=== PATIENT | male | born 2000 | race African-American/Black ===

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

== ENCOUNTER 2019-01-02 17:24 | Emergency (ER) | payer BC, OTHER ==
[~2019-01-02] VITALS: Ht 195.6 cm; Wt 90.7 kg
[~2019-01-02 17:24] MED LIST: CEPACOL SORE T1 EAC8 PO; LEVAQUIN 500 M500 M2 PO; PENICILLIN V P500 MG PO; PREDNISONE 20 M20 M1 PO
[2019-01-02] MEDS ORDERED: MOBIC7.5 MG PO (19:27)
[2019-01-02 19:51] VITALS: BP 126/80
--- NOTE | 2019-01-03 08:13 | EKG ---
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 01/03/19 0813 1825 1825 John Glez MD, FACC /EPI
== END 2019-01-02 19:53 | disposition home or self-care (01) ==
LOC: ER 17:24
DX: R07.89 Other chest pain (principal)

== ENCOUNTER 2019-04-28 19:47 | Emergency (ER) | payer OTHER ==
[~2019-04-28] VITALS: Ht 195.6 cm; Wt 98.9 kg
[~2019-04-28 19:47] MED LIST changes: +MOBIC7.5 MG PO
[2019-04-28 19:49] VITALS: BP 130/78
== END 2019-04-28 21:32 | disposition home or self-care (01) ==
LOC: ER 19:47
DX: J30.9 Allergic rhinitis, unspecified (principal); Z77.120 Contact with and (suspected) exposure to mold (toxic)

== ENCOUNTER 2019-11-13 12:15 | Emergency (ER) | payer OTHER ==
[~2019-11-13] VITALS: Ht 195.6 cm; Wt 98.9 kg
[2019-11-13] MEDS ORDERED: AMOXICILLIN875 MG PO (14:58)
[2019-11-13] MEDS ORDERED: TRAMADOL 50 MG50 MG PO (14:58)
[2019-11-13 15:08] VITALS: BP 142/81
== END 2019-11-13 15:08 | disposition home or self-care (01) ==
LOC: ER 12:15
DX: J32.9 Chronic sinusitis, unspecified (principal); R51 Headache

== ENCOUNTER 2019-12-04 20:36 | Inpatient (IN) | payer OTHER ==
[~2019-12-04] VITALS: Ht 195.6 cm; Wt 106.1 kg
[~2019-12-04 20:36] MED LIST changes: +AMOXICILLIN875 MG PO; +TRAMADOL 50 MG50 MG PO
[2019-12-04 20:37] VITALS: BP 140/71
[2019-12-04] MEDS ORDERED: NOHOMEMEDICATIONS (21:18)
[2019-12-04 21:19] LABS: ABSOLUTE NEUTROPHILS 2.7 thou/uL (1.4-8.2); BASOPHILS 1.2 % (0.0-2.0); EOSINOPHILS 2.3 % (0.0-3.0); HEMATOCRIT 47.2 % (42.0-52.0); HEMOGLOBIN 15.9 gm/dL (14.0-18.0); LYMPHOCYTES 32.8 % (24.0-44.0); MCH 29.4 pg (26.0-34.0); MCHC 33.7 g/dL (28.0-37.0); MCV 87.1 fL (80.0-100.0); PLATELET COUNT 179 thou/uL (150-400); POLYS 59.7 % (36.0-66.0); RBC 5.42 mil/uL (4.50-6.00); WBC 4.6 thou/uL (4.0-11.0)
[2019-12-04 21:22] LABS: CREATININE 1.3 mg/dL (0.7-1.3); POTASSIUM 3.6 mmol/L (3.5-5.1)
[2019-12-04 21:28] LABS: ALBUMIN 4.8 g/dL (3.4-5.0); DIRECT BILIRUBIN 0.1 mg/dL (<0.1-0.2); TOTAL BILIRUBIN 0.5 mg/dL (<0.1-1.0); TOTAL PROTEIN 9.3 g/dL (6.4-8.2)
[2019-12-04 21:37] LABS: URINE BILIRUBIN NEGATIVE (Negative); URINE BLOOD NEGATIVE (Negative); URINE CLARITY CLEAR; URINE COLOR YELLOW; URINE GLUCOSE-RANDOM* NEGATIVE (Negative); URINE KETONES NEGATIVE (Negative); URINE LEUKOCYTES-REFLEX NEGATIVE (Negative); URINE NITRITE-REFLEX NEGATIVE (Negative); URINE PROTEIN (DIPSTICK) NEGATIVE (Negative); URINE SPECIFIC GRAVITY >= 1.030 (1.005-1.035)
[2019-12-05 00:08] VITALS: BP 116/62
[2019-12-05 00:25] VITALS: BP 126/66
[2019-12-05] MEDS ORDERED: FLEXERIL PO (00:53)
[2019-12-05 06:15] VITALS: BP 116/62
[2019-12-05 07:00] VITALS: BP 11/54
[2019-12-05 14:59] VITALS: BP 114/60
[2019-12-05 19:16] VITALS: BP 115/62
[2019-12-06 04:42] LABS: ABSOLUTE NEUTROPHILS 1.7 thou/uL (1.4-8.2); BASOPHILS 0.5 % (0.0-2.0); EOSINOPHILS 4.3 % (0.0-3.0); HEMATOCRIT 36.8 % (42.0-52.0); LYMPHOCYTES 38.6 % (24.0-44.0); MCH 29.4 pg (26.0-34.0); MCHC 33.4 g/dL (28.0-37.0); MCV 88.1 fL (80.0-100.0); MONOCYTES 9.7 % (1.0-8.0); PLATELET COUNT 125 thou/uL (150-400); POLYS 46.9 % (36.0-66.0); RBC 4.18 mil/uL (4.50-6.00); RDW 12.9 % (10.5-14.5); WBC 3.7 thou/uL (4.0-11.0)
[2019-12-06 04:44] LABS: HEMOGLOBIN 12.3 gm/dL (14.0-18.0)
[2019-12-06 09:42] VITALS: BP 150/63
[2019-12-06 14:37] VITALS: BP 132/70
[2019-12-06 19:56] VITALS: BP 123/62
[2019-12-07 07:01] VITALS: BP 138/67
[2019-12-07 14:48] VITALS: BP 138/67
== END 2019-12-07 15:15 | disposition home or self-care (01) | DRG 392 ==
LOC: ER 20:36 → EROBS 12-05 00:10 → 4W 12-05 00:16
PROVIDERS: Nurse Practitioner; Surgery; ADMIT Surgery
DX: R10.9 Unspecified abdominal pain (principal); Z79.899 Other long term (current) drug therapy; Z80.3 Family history of malignant neoplasm of breast
CPT/HCPCS: 10040

== ENCOUNTER 2019-12-11 08:49 | Inpatient (IN) | payer OTHER ==
[~2019-12-11] VITALS: Ht 195.6 cm; Wt 93.0 kg
[~2019-12-11 08:49] MED LIST changes: +FLEXERIL PO; +NOHOMEMEDICATIONS
[2019-12-11 08:50] VITALS: BP 139/83
[2019-12-11 09:40] LABS: ABSOLUTE NEUTROPHILS 1.7 thou/uL (1.4-8.2); BASOPHILS 0.8 % (0.0-2.0); EOSINOPHILS 7.7 % (0.0-3.0); HEMATOCRIT 49.6 % (42.0-52.0); HEMOGLOBIN 16.8 gm/dL (14.0-18.0); LYMPHOCYTES 38.2 % (24.0-44.0); MCH 29.6 pg (26.0-34.0); MCHC 33.9 g/dL (28.0-37.0); MCV 87.2 fL (80.0-100.0); MONOCYTES 7.2 % (1.0-8.0); PLATELET COUNT 176 thou/uL (150-400); POLYS 46.1 % (36.0-66.0); RBC 5.69 mil/uL (4.50-6.00); RDW 13.2 % (10.5-14.5); WBC 3.6 thou/uL (4.0-11.0)
[2019-12-11 09:44] LABS: CALCIUM 10.2 mg/dL (8.5-10.1); CREATININE 1.3 mg/dL (0.7-1.3); POTASSIUM 4.3 mmol/L (3.5-5.1)
[2019-12-11 09:50] LABS: ALBUMIN 4.4 g/dL (3.4-5.0); TOTAL BILIRUBIN 0.7 mg/dL (<0.1-1.0)
[2019-12-11 12:19] VITALS: BP 121/74
[2019-12-11 13:00] VITALS: BP 127/78
--- NOTE | 2019-12-11 14:42 | NUR ---
Patient arrived on unit at 1240. Vital signs are stable. Patient admitted with Appendicitis. He is NPO, awaiting surgery. Patient started on Lactated Ringer's at 100mLs/hr. Patient tolerated IV antibiotics well. He signed consent for Appendectomy after verbalizing an understanding. Signifigant other and family members are at bedside. Patient is up ad jaycee to the restroom. He denied pain upon admittance as he had pain medication in the ED. Will continue to monitor.
[2019-12-11 20:48] VITALS: BP 155/69
--- NOTE | 2019-12-12 05:30 | NUR ---
PROGRESS PT UP AD MATT VSS, WEANED TO ROOM AIR SATS AT 99%. TOLERATING REG DIET, PO INTAKE ADEQUATE. IV INFILTRATED REMOVED ORDER OBTAINED BY DR. ISHA GRULLON TO LEAVE OUT. PAIN CONTROLLED WITH IBUPROFEN, OXYCODONE AND TYLENOL. VOIDING QS. PLANS TO DC HOME TODAY.
[2019-12-12] MEDS ORDERED: IBUPROFEN 200200 M1 PO (13:28)
[2019-12-12] MEDS ORDERED: OXYCODONE HCL 55 MG PO (13:29)
[2019-12-12] MEDS ORDERED: COLACE 100 MG100 MG PO (13:29)
[2019-12-12] MEDS ORDERED: ACETAMINOPHEN325 M1 PO (13:29)
[2019-12-12] MEDS ORDERED: ZOFRAN ODT4 MG DISSOLVE (13:30)
[2019-12-12] MEDS ORDERED: MIRALAX17 GM PO (13:30)
[2019-12-12 14:13] VITALS: BP 155/69
--- NOTE | 2019-12-12 19:36 | NUR ---
VERIFYING DISCHARGE MEDS FOR [facility] POST DISCHARGE.
--- NOTE | 2019-12-15 16:07 | PATH ---
[facility] [address] [place] [address] PATHOLOGY RPT PROCEDURE Name: PINA VALERA Room #: 456-P DIS IN M.R.#: [id number] Admission: 12/11/19 Date of : [birth year] Discharge: 12/12/19 Report #: [id number] Path Case #: [id number] [facility] Accession Number: [id number] . 01 Material submitted: . appendix - APPENDIX . 01 Clinical history: . acute appendicitis . 02 Diagnosis: Appendix, appendectomy: - Markedly congested appendiceal wall. - Moderate acute and chronic serositis. - Lymphoid tissue showing reactive hyperplastic changes within the appendiceal wall. . (IUV:mml; 12/15/2019) QL 12/15/2019 1345 Local . 02 Electronically signed: . Meenakshi Harp MD, Pathologist NPI- [id number] . 01 Gross description: . The specimen is received in formalin, labeled "Pina Valera, appendix" and consists of an appendix measuring 10.8 in length and up to 0.8 in diameter with mesoappendix measuring 1.5 thick. The serosa is pink-neri with hemorrhagic adhesions. The margin is closed with a line of sara and inked black. Sectioning reveals a pinpoint to dilated lumen containing brown fecal material and no fecaliths. Sales Superintendent sections are submitted in A1. (SDY; 12/12/2019) SYU/SYU 12/12/2019 1605 Local . 02 Pathologist provided ICD-10: K35.80, K65.8 . 02 CPT . 846796 Specimen Comment: A courtesy copy of this report has been sent to [phone] Specimen Comment: Report sent to Performed at: [address] [id number] MD Aaron Trivedi MD Phone: [phone] Performed at: [address] [address] [place] [address] PATHOLOGY RPT PROCEDURE Name: PINA VALERA Room #: 456-P DIS IN M.R.#: [id number] Admission: 12/11/19 Date of : [birth year] Discharge: 12/12/19 Report #: [id number] Path Case #: [id number] [address] [id number] MD Meenakshi Harp MD Phone: [phone]
== END 2019-12-12 16:17 | disposition home or self-care (01) | DRG 343 ==
LOC: ER 08:49 → EROBS 11:05 → 4W 11:05 → ENTRNSPT 12-12 16:02 → 4W 12-12 16:17
PROVIDERS: Emergency Medicine; ADMIT Surgery
PROC: 0DTJ4ZZ Resection of Appendix, Percutaneous Endoscopic Approach (ICD-10-PCS; principal; 2019-12-11)
DX: K35.80 Unspecified acute appendicitis (principal); Z79.899 Other long term (current) drug therapy; Z28.21 Immunization not carried out because of patient refusal
CPT/HCPCS: 10047; 50010; 50101; 50249; 50411; 50555; 50558; 50739; 50740; 52265; 52266; 53307; 53310; 53312; 54022; 54118; 56525; 56526; 62110; 62900; 70005

== ENCOUNTER 2020-06-05 03:26 | Emergency (ER) | payer OTHER ==
[~2020-06-05] VITALS: Ht 195.6 cm; Wt 95.3 kg
[~2020-06-05 03:26] MED LIST changes: +ACETAMINOPHEN325 M1 PO; +COLACE 100 MG100 MG PO; +IBUPROFEN 200200 M1 PO; +MIRALAX17 GM PO; +OXYCODONE HCL 55 MG PO; +ZOFRAN ODT4 MG DISSOLVE
[2020-06-05] MEDS ORDERED: NAPROSYN500 M1 (03:37)
[2020-06-05] MEDS ORDERED: FLEXERIL PO (03:37)
[2020-06-05 04:35] LABS: ABSOLUTE NEUTROPHILS 1.9 thou/uL (1.4-8.2); BASOPHILS 0.9 % (0.0-2.0); EOSINOPHILS 6.9 % (0.0-3.0); HEMATOCRIT 42.6 % (42.0-52.0); HEMOGLOBIN 14.6 gm/dL (14.0-18.0); MCH 30.3 pg (26.0-34.0); MCHC 34.2 g/dL (28.0-37.0); MCV 88.6 fL (80.0-100.0); MONOCYTES 8.1 % (1.0-8.0); PLATELET COUNT 151 thou/uL (150-400); POLYS 49.1 % (36.0-66.0); RBC 4.81 mil/uL (4.50-6.00); RDW 12.9 % (10.5-14.5); WBC 3.9 thou/uL (4.0-11.0)
[2020-06-05 04:43] LABS: ANION GAP 8 mmol/L (7-16); BUN 13 mg/dL (7-18); CALCIUM 8.9 mg/dL (8.5-10.1); CHLORIDE 104 mmol/L (98-107); CO2 27 mmol/L (21-32); CREATININE 1.3 mg/dL (0.7-1.3); GLUCOSE 121 mg/dL (74-106); POTASSIUM 3.9 mmol/L (3.5-5.1); SODIUM 139 mmol/L (136-145)
[2020-06-05 04:53] LABS: ALBUMIN 3.9 g/dL (3.4-5.0); SGOT 19 U/L (15-37); SGPT 31 U/L (30-65); TOTAL BILIRUBIN 0.3 mg/dL (0.2-1.0); TOTAL PROTEIN 7.3 g/dL (6.4-8.2); TROPONIN-I <0.06 ng/mL (<0.06)
[2020-06-05 05:00] LABS: AMP/METHAMP Negative (Negative); BARBITURATES Negative (Negative); BENZODIAZEPINES Negative (Negative); COCAINE Negative (Negative); METHADONE Negative (Negative); OPIATES Negative (Negative); PCP Negative (Negative)
[2020-06-05] MEDS ORDERED: TYLENOL WITH CO1 TA1 PO (06:00)
[2020-06-05] MEDS ORDERED: NAPROSYN500 MG PO (06:00)
[2020-06-05] MEDS ORDERED: NORFLEX100 MG PO (06:00)
[2020-06-05 06:22] VITALS: BP 135/65
[2020-06-05 07:19] LABS: LARGE PLATELETS OCCASIONAL
--- NOTE | 2020-06-07 08:05 | EKG ---
[facility] [place] [address] ELECTROCARDIOGRAM REPORT Name: PINA VALERA Room #: DEP 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
== END 2020-06-05 06:28 | disposition home or self-care (01) ==
LOC: ER 03:26
PROVIDERS: Emergency Medicine
DX: M54.6 Pain in thoracic spine (principal); Z90.49 Acquired absence of other specified parts of digestive tract; Z79.899 Other long term (current) drug therapy

== ENCOUNTER 2021-04-24 21:36 | Emergency (ER) | payer OTHER, BC ==
[~2021-04-24] VITALS: Ht 195.6 cm; Wt 106.1 kg
[~2021-04-24 21:36] MED LIST changes: +NAPROSYN500 M1; +NAPROSYN500 MG PO; +NORFLEX100 MG PO; +TYLENOL WITH CO1 TA1 PO
[2021-04-24 23:48] VITALS: BP 140/77
== END 2021-04-24 23:49 | disposition home or self-care (01) ==
LOC: ER 21:36
DX: S80.12XA Contusion of left lower leg, initial encounter (principal); V43.52XA Car driver injured in collision with other type car in traffic accident, initial encounter; Y93.I9 Activity, other involving external motion; Y92.89 Other specified places as the place of occurrence of the external cause; Y99.8 Other external cause status

== ENCOUNTER 2021-10-06 13:22 | Emergency (ER) | payer BC ==
[~2021-10-06] VITALS: Ht 195.6 cm; Wt 106.6 kg
[2021-10-06 13:28] VITALS: BP 144/66
== END 2021-10-06 14:25 | disposition home or self-care (01) ==
LOC: ER 13:22
DX: R68.84 Jaw pain (principal); Z90.89 Acquired absence of other organs; Z98.890 Other specified postprocedural states; Z79.891 Long term (current) use of opiate analgesic; Z79.899 Other long term (current) drug therapy